=== PATIENT | female | born 1970 | race Two or more races ===

== ENCOUNTER 2023-10-03 09:48 | Emergency (ER) | payer OTHER ==
[~2023-10-03] VITALS: Ht 160 cm; Wt 74.8 kg
[2023-10-03 09:58] VITALS: BP 125/82; PULSE 88; RESP 15; TEMP 98; O2SAT 98
[2023-10-03 10:31] LABS: BASOPHILS % (AUTO) 0.5 % (0.0-2.0); EOSINOPHILS # (AUTO) 0.1 K/uL (0-0.4); EOSINOPHILS % (AUTO) 2.1 % (0.0-4.0); HEMATOCRIT 40.9 % (36-48); HEMOGLOBIN 13.3 g/dL (12.0-16.0); LYMPHOCYTES # (AUTO) 1.8 K/uL (2.5-16.5); LYMPHOCYTES % (AUTO) 25.9 % (20.5-51.1); MEAN CORPUSCULAR HEMOGLOBIN 26 pg (27-31); MEAN CORPUSCULAR HGB CONC 33 g/dL (33-37); MEAN CORPUSCULAR VOLUME 79.9 fL (80-94); MONOCYTES # (AUTO) 0.3 K/uL (0.8-1.0); MONOCYTES % (AUTO) 4.6 % (1.7-9.3); NEUTROPHILS # (AUTO) 4.7 K/uL (1.8-7.7); NEUTROPHILS % (AUTO) 66.9 % (42.2-75.2); PLATELET COUNT (AUTO) 226 K/uL (140-450); RED BLOOD CELL COUNT(AUTO) 5.11 MIL/uL (4.20-5.40); RED CELL DISTRIBUTION WIDTH 14.7 % (11.6-13.7)
[2023-10-03 10:49] LABS: ALBUMIN 3.8 g/dL (3.4-5.0); ANION GAP 10.2 (8-16); CALCIUM 8.7 mg/dL (8.5-10.1); CARBON DIOXIDE 32.8 mmol/L (21-32); CREATININE 0.8 mg/dL (0.6-1.3); TOTAL BILIRUBIN 0.6 mg/dL (0.0-1.0); TOTAL PROTEIN, SERUM 7.1 g/dL (6.4-8.2)
[2023-10-03] MEDS ORDERED: KETOROLAC 30 MG/ML VIAL IM ONE (11:40)
[2023-10-03] MEDS ORDERED: LIDOCAINE 4% PATCH 1 EA PATCH TP ONE (11:40)
[2023-10-03] MEDS ORDERED: IBUP-2213 PO (13:12)
[2023-10-03] MEDS ORDERED: LID5T TP (13:16)
[2023-10-03 13:23] VITALS: BP 120/78; PULSE 78; RESP 15; TEMP 98; O2SAT 98
== END 2023-10-03 13:24 | disposition home or self-care (01) ==
LOC: MED 09:48
DX: R07.89 Other chest pain (principal); Z79.899 Other long term (current) drug therapy; Z79.1 Long term (current) use of non-steroidal anti-inflammatories (NSAID)
CPT/HCPCS: 36415; 71045; 80053; 83880; 84484; 85025; 93005; 96372; 99285; J1885

== ENCOUNTER 2024-03-17 22:30 | Emergency (ER) | payer OTHER ==
[~2024-03-17] VITALS: Ht 160 cm; Wt 67.6 kg
[~2024-03-17 22:30] MED LIST: IBUP-2213 PO; LID5T TP
[2024-03-17 22:50] VITALS: BP 122/71; PULSE 81; RESP 17; TEMP 97.6; O2SAT 97
[2024-03-18] MEDS ORDERED: IBUP-2213 PO (00:49)
[2024-03-18] MEDS ORDERED: CYCL-711 PO (00:49)
[2024-03-18 00:58] VITALS: BP 124/76; PULSE 76; RESP 14; O2SAT 98
[2024-03-18] MEDS: KETOROLAC 30 MG/ML VIAL IM ONE (01:00)
== END 2024-03-18 01:00 | disposition home or self-care (01) ==
LOC: MED 22:30
DX: S39.012A Strain of muscle, fascia and tendon of lower back, initial encounter (principal); S16.1XXA Strain of muscle, fascia and tendon at neck level, initial encounter; Z79.899 Other long term (current) drug therapy; V89.2XXA Person injured in unspecified motor-vehicle accident, traffic, initial encounter; Y93.89 Activity, other specified; Y92.410 Unspecified street and highway as the place of occurrence of the external cause; Y99.8 Other external cause status
CPT/HCPCS: 96372; 99283; J1885

== ENCOUNTER 2024-03-29 12:52 | Emergency (ER) | payer OTHER ==
[~2024-03-29] VITALS: Ht 160 cm; Wt 68.0 kg
[~2024-03-29 12:52] MED LIST changes: +CYCL-711 PO
[2024-03-29 13:08] VITALS: BP 115/65; PULSE 83; RESP 20; TEMP 98.1; O2SAT 100
[2024-03-29] MEDS: KETOROLAC 30 MG/ML VIAL IM ONE (14:14)
[2024-03-29 15:44] VITALS: BP 120/68; PULSE 78; RESP 20; TEMP 98.5; O2SAT 100
[2024-03-29] MEDS ORDERED: NAPR-337 PO (15:46)
[2024-03-29] MEDS ORDERED: CYCL-711 PO (15:46)
[2024-03-29] MEDS ORDERED: LID5T TP (15:46)
== END 2024-03-29 16:06 | disposition home or self-care (01) ==
LOC: MED 12:52
DX: M54.2 Cervicalgia (principal); M54.6 Pain in thoracic spine; M62.838 Other muscle spasm; Z79.899 Other long term (current) drug therapy; V89.2XXD Person injured in unspecified motor-vehicle accident, traffic, subsequent encounter
CPT/HCPCS: 72040; 72072; 96372; 99284; J1885

== ENCOUNTER 2024-05-13 21:14 | Emergency (ER) | payer OTHER ==
[~2024-05-13] VITALS: Ht 160 cm; Wt 68.5 kg
[~2024-05-13 21:14] MED LIST changes: +NAPR-337 PO
[2024-05-13 21:20] VITALS: BP 112/74; PULSE 101; RESP 18; TEMP 98; O2SAT 98
[2024-05-13 21:45] VITALS: BP 112/74; PULSE 101; RESP 18; TEMP 98; O2SAT 98
[2024-05-13] MEDS ORDERED: FLONAS NS (22:40)
[2024-05-13] MEDS ORDERED: AMOX-1230 PO (22:40)
== END 2024-05-13 22:39 | disposition home or self-care (01) ==
LOC: MED 21:14
DX: H66.93 Otitis media, unspecified, bilateral (principal); H68.003 Unspecified Eustachian salpingitis, bilateral; Z79.899 Other long term (current) drug therapy
CPT/HCPCS: 93005; 99283

== ENCOUNTER 2024-05-25 12:16 | Emergency (ER) | payer OTHER ==
[~2024-05-25] VITALS: Ht 160 cm; Wt 64.6 kg
[~2024-05-25 12:16] MED LIST changes: +AMOX-1230 PO; +FLONAS NS
[2024-05-25 12:22] VITALS: BP 135/82; PULSE 94; RESP 17; TEMP 98.1; O2SAT 96
[2024-05-25 13:30] LABS: BASOPHILS % (AUTO) 0.5 % (0.0-2.0); EOSINOPHILS # (AUTO) 0.1 K/uL (0-0.4); EOSINOPHILS % (AUTO) 0.6 % (0.0-4.0); HEMATOCRIT 41.2 % (36-48); HEMOGLOBIN 13.4 g/dL (12.0-16.0); LYMPHOCYTES # (AUTO) 1.6 K/uL (2.5-16.5); LYMPHOCYTES % (AUTO) 18.1 % (20.5-51.1); MEAN CORPUSCULAR HEMOGLOBIN 26 pg (27-31); MEAN CORPUSCULAR HGB CONC 33 g/dL (33-37); MEAN CORPUSCULAR VOLUME 79.8 fL (80-94); MONOCYTES # (AUTO) 0.4 K/uL (0.8-1.0); MONOCYTES % (AUTO) 4.9 % (1.7-9.3); NEUTROPHILS # (AUTO) 6.7 K/uL (1.8-7.7); NEUTROPHILS % (AUTO) 75.9 % (42.2-75.2); PLATELET COUNT (AUTO) 263 K/uL (140-450); RED BLOOD CELL COUNT(AUTO) 5.16 MIL/uL (4.20-5.40); RED CELL DISTRIBUTION WIDTH 13.7 % (11.6-13.7); WHITE BLOOD COUNT (AUTO) 8.8 K/uL (4.8-10.8)
[2024-05-25] MEDS ORDERED: DICYCLOMINE HCL LIQUID 10 MG/5 ML UDC ONE (13:52)
[2024-05-25] MEDS ORDERED: ALUMINUM HYD/MAG/SIMETHICONE 30 ML UDC ONE (13:52)
[2024-05-25 13:55] LABS: ANION GAP 12.9 (8-16); CALCIUM 8.9 mg/dL (8.5-10.1); CARBON DIOXIDE 30.1 mmol/L (21-32); CREATININE 0.7 mg/dL (0.6-1.3)
[2024-05-25 13:59] LABS: INR 1.03 (0.8-1.2); PARTIAL THROMBOPLASTIN TIME 29.5 secs (22-35.6); PROTHROMBIN TIME 10.8 secs (10.8-13.4)
[2024-05-25] MEDS: DICYCLOMINE HCL LIQUID 20 MG, ALUMINUM HYD/MAG/SIMETHICONE 30 ML, LIDOCAINE VISCOUS 2% ... PO ONE (13:59)
[2024-05-25 14:02] LABS: ALANINE AMINOTRANSFERASE 17 U/L (12-78); ALBUMIN 3.9 g/dL (3.4-5.0); ALKALINE PHOSPHATASE 72 U/L (50-136); ASPARTATE AMINOTRANSFERASE 11 U/L (15-37); BILIRUBIN,DIRECT 0.1 mg/dL (0.0-0.3); LIPASE 35 U/L (16-77); TOTAL BILIRUBIN 0.5 mg/dL (0.0-1.0); TOTAL PROTEIN, SERUM 7.2 g/dL (6.4-8.2)
[2024-05-25 15:05] VITALS: BP 135/82; PULSE 94; RESP 17; TEMP 98.1; O2SAT 96
== END 2024-05-25 15:04 | disposition home or self-care (01) ==
LOC: MED 12:16
DX: R10.13 Epigastric pain (principal); R07.89 Other chest pain; Z79.899 Other long term (current) drug therapy
CPT/HCPCS: 36415; 71045; 80048; 80076; 83690; 83880; 84484; 85025; 85610; 85730; 93005; 99285

== ENCOUNTER 2024-05-28 17:52 | Emergency (ER) | payer OTHER ==
[~2024-05-28] VITALS: Ht 160 cm; Wt 64.5 kg
[2024-05-28 17:56] VITALS: BP 126/74; PULSE 88; RESP 18; TEMP 97.5; O2SAT 98
[2024-05-28] MEDS ORDERED: KETOROLAC 30 MG/ML VIAL IM ONE (18:25)
[2024-05-28] MEDS ORDERED: DICYCLOMINE HCL LIQUID 10 MG/5 ML UDC ONE ×2 (18:48→20:49)
[2024-05-28] MEDS ORDERED: ALUMINUM HYD/MAG/SIMETHICONE 30 ML UDC ONE ×2 (18:48→20:49)
[2024-05-28] MEDS: FAMOTIDINE 20 MG TAB PO ONE (18:52)
[2024-05-28] MEDS: DICYCLOMINE HCL LIQUID 20 MG, ALUMINUM HYD/MAG/SIMETHICONE 30 ML, LIDOCAINE VISCOUS 2% ... PO ONE ×2 (18:52→20:53)
[2024-05-28] MEDS: ONDANSETRON 4 MG ODT PO ONE ×2 (18:52→20:54)
[2024-05-28 18:55] VITALS: O2SAT 98
[2024-05-28 19:34] LABS: BASOPHILS # (AUTO) 0.1 K/uL (0.00-0.22); BASOPHILS % (AUTO) 0.8 % (0.0-2.0); EOSINOPHILS # (AUTO) 0.1 K/uL (0-0.4); EOSINOPHILS % (AUTO) 1.1 % (0.0-4.0); HEMATOCRIT 40.6 % (36-48); HEMOGLOBIN 13.1 g/dL (12.0-16.0); LYMPHOCYTES # (AUTO) 2.2 K/uL (2.5-16.5); LYMPHOCYTES % (AUTO) 22.9 % (20.5-51.1); MEAN CORPUSCULAR HEMOGLOBIN 26 pg (27-31); MEAN CORPUSCULAR HGB CONC 32 g/dL (33-37); MEAN CORPUSCULAR VOLUME 79.8 fL (80-94); MONOCYTES # (AUTO) 0.6 K/uL (0.8-1.0); MONOCYTES % (AUTO) 6.1 % (1.7-9.3); NEUTROPHILS # (AUTO) 6.7 K/uL (1.8-7.7); NEUTROPHILS % (AUTO) 69.1 % (42.2-75.2); PLATELET COUNT (AUTO) 233 K/uL (140-450); RED BLOOD CELL COUNT(AUTO) 5.09 MIL/uL (4.20-5.40); RED CELL DISTRIBUTION WIDTH 14.3 % (11.6-13.7); WHITE BLOOD COUNT (AUTO) 9.7 K/uL (4.8-10.8)
[2024-05-28 20:07] LABS: ALANINE AMINOTRANSFERASE 17 U/L (12-78); ALBUMIN 3.8 g/dL (3.4-5.0); ALKALINE PHOSPHATASE 71 U/L (50-136); ANION GAP 8.3 (8-16); ASPARTATE AMINOTRANSFERASE 10 U/L (15-37); CALCIUM 8.9 mg/dL (8.5-10.1); CARBON DIOXIDE 32.4 mmol/L (21-32); CHLORIDE 105 mmol/L (98-107); CREATININE 0.8 mg/dL (0.6-1.3); GFR ARICAN-AMERICAN 97 mL/min (>90); GFR NON ARICAN-AMERICAN 80 mL/min (>90); GLUCOSE 97 mg/dL (74-106); LIPASE 29 U/L (16-77); POTASSIUM 3.7 mmol/L (3.5-5.1); SODIUM SERUM 142 mmol/L (136-145); TOTAL BILIRUBIN 0.4 mg/dL (0.0-1.0); TOTAL PROTEIN, SERUM 6.8 g/dL (6.4-8.2); UREA NITROGEN, BLOOD 8 mg/dL (7-18)
[2024-05-28 20:19] LABS: APPEARANCE,URINE CLEAR (CLEAR); BILIRUBIN,URINE NEGATIVE (NEGATIVE); BLOOD, URINE NEGATIVE (NEGATIVE); COLOR,URINE YELLOW (YELLOW); LEUKOCYTE ESTERASE ,URINE NEGATIVE (NEGATIVE); NITRITE, URINE NEGATIVE (NEGATIVE); PH,URINE 7.5 (5.0-9.0); PROTEIN,URINE NEGATIVE (NEGATIVE); UGLUCOSE NEGATIVE (NEGATIVE); UROBILINOGEN,URINE 0.2 EU/dL (0.2 - 1)
[2024-05-28] MEDS ORDERED: ACET-8905 PO (20:26)
[2024-05-28] MEDS ORDERED: MAG355OR2 PO (20:26)
[2024-05-28] MEDS ORDERED: FAMO-90 PO (20:26)
[2024-05-28] MEDS: ACETAMINOPHEN EXTRA STRENGTH 500 MG TAB PO ONE (20:54)
== END 2024-05-28 20:56 | disposition home or self-care (01) ==
LOC: MED 17:52
DX: K29.70 Gastritis, unspecified, without bleeding (principal); Z79.899 Other long term (current) drug therapy
CPT/HCPCS: 36415; 76705; 80053; 81003; 83690; 84484; 85025; 93005; 99284; Q0092; Q0162

== ENCOUNTER 2024-07-12 18:56 | Emergency (ER) | payer OTHER ==
[~2024-07-12] VITALS: Ht 160 cm; Wt 59.0 kg
[~2024-07-12 18:56] MED LIST changes: +ACET-8905 PO; +FAMO-90 PO; +MAG355OR2 PO
[2024-07-12 19:36] VITALS: BP 134/85; PULSE 95; RESP 16; TEMP 99.8; O2SAT 97
[2024-07-12 19:55] VITALS: BP 134/85; PULSE 95; RESP 16; TEMP 99.8
[2024-07-12 20:03] VITALS: O2SAT 97
[2024-07-12 20:41] LABS: BASOPHILS # (AUTO) 0.1 K/uL (0.00-0.22); BASOPHILS % (AUTO) 0.7 % (0.0-2.0); EOSINOPHILS # (AUTO) 0.1 K/uL (0-0.4); EOSINOPHILS % (AUTO) 0.9 % (0.0-4.0); HEMATOCRIT 40.8 % (36-48); HEMOGLOBIN 13.2 g/dL (12.0-16.0); LYMPHOCYTES # (AUTO) 2.4 K/uL (2.5-16.5); LYMPHOCYTES % (AUTO) 27.3 % (20.5-51.1); MEAN CORPUSCULAR HEMOGLOBIN 26 pg (27-31); MEAN CORPUSCULAR HGB CONC 32 g/dL (33-37); MEAN CORPUSCULAR VOLUME 80.7 fL (80-94); MONOCYTES # (AUTO) 0.6 K/uL (0.8-1.0); MONOCYTES % (AUTO) 6.8 % (1.7-9.3); NEUTROPHILS # (AUTO) 5.7 K/uL (1.8-7.7); NEUTROPHILS % (AUTO) 64.3 % (42.2-75.2); PLATELET COUNT (AUTO) 221 K/uL (140-450); RED BLOOD CELL COUNT(AUTO) 5.06 MIL/uL (4.20-5.40); RED CELL DISTRIBUTION WIDTH 15.3 % (11.6-13.7); WHITE BLOOD COUNT (AUTO) 8.9 K/uL (4.8-10.8)
[2024-07-12 21:01] LABS: ALBUMIN 3.7 g/dL (3.4-5.0); ANION GAP 11.3 (8-16); CARBON DIOXIDE 29.3 mmol/L (21-32); CREATININE 0.7 mg/dL (0.6-1.3); MAGNESIUM 2.1 mg/dL (1.8-2.4); POTASSIUM 3.6 mmol/L (3.5-5.1); TOTAL BILIRUBIN 0.5 mg/dL (0.0-1.0); TOTAL PROTEIN, SERUM 6.6 g/dL (6.4-8.2)
== END 2024-07-12 23:04 | disposition home or self-care (01) ==
LOC: MED 18:56
DX: R63.0 Anorexia (principal); F32.9 Major depressive disorder, single episode, unspecified; Z79.899 Other long term (current) drug therapy
CPT/HCPCS: 36415; 80053; 81025; 83735; 85025; 99283